=== PATIENT | female | born 1950 | race American Indian/Alaskan Native ===

== ENCOUNTER 2019-07-27 07:49 | Day surgery (SDC) | payer MEDICARE ==
--- NOTE | 2019-07-27 09:21 | Emergency Department Report ---
ED General Adult HPI - General Chief complaint: Medical Clearance Stated complaint: KIDNEY STONES Time Seen by Provider: 07/27/19 09:11 Source: patient Mode of arrival: Ambulatory Limitations: No Limitations - History of Present Illness Initial comments: This is a 68-year-old female who states that she was called by the lady (Rae) that schedules surgery for Dr. Mayfield. She was directed to "come to the emergency room yesterday". Patient states this was for scheduled kidney stone surgery. She is a very poor historian. She does not know if she is scheduled for an open procedure or endoscopic retrieval. She does not complain of fever chills nausea vomiting or any acute pain. She has had right flank pain since January when the kidney stone was discovered. She states that she has had a urine infection in the past but is not currently on an antibiotic. Patient states that she checked her sugar and found it to be 100 this morning. She states that she checks her sugar twice a day but does not take any medicine for diabetes. She has a history of hypertension. -: month(s) Location: right (Flank) Radiation: non-radiation Consistency: intermittent Improves with: none Worsens with: none Associated Symptoms: denies other symptoms Treatments Prior to Arrival: other ("Medicine to make the kidney stone come out") - Related Data Home Medications Medication Instructions Recorded Confirmed Last Taken AtorvaSTATin 40 mg PO DAILY 10/08/15 10/08/15 10/07/15 Fexofenadine HCl 180 mg PO DAILY 10/08/15 10/08/15 10/07/15 Finasteride 1 mg PO DAILY 10/08/15 10/08/15 10/07/15 Hydrochlorothiazide 25 mg PO DAILY 10/08/15 10/08/15 10/08/15 Omeprazole 40 mg PO DAILY 10/08/15 10/08/15 10/07/15 SUMAtriptan SUCCINATE 50 mg PO DAILY 10/08/15 10/08/15 10/07/15 Topiramate 25 mg PO DAILY 10/08/15 10/08/15 10/07/15 Allergies Allergy/AdvReac Type Severity Reaction Status Date / Time acetaminophen [From Percocet] Allergy Hives Verified 10/06/15 10:43 oxycodone HCl [From Percocet] Allergy Hives Verified 10/06/15 10:43 ED Review of Systems ROS: Stated complaint: KIDNEY STONES Other details as noted in HPI Constitutional: denies: chills, fever Eyes: denies: eye pain, vision change ENT: denies: ear pain, throat pain Respiratory: denies: cough, shortness of breath, wheezing Cardiovascular: denies: chest pain, palpitations Endocrine: no symptoms reported Gastrointestinal: denies: abdominal pain, nausea, diarrhea Genitourinary: denies: urgency, dysuria, discharge Musculoskeletal: back pain. denies: arthralgia Skin: denies: rash, lesions Neurological: denies: headache, weakness Psychiatric: denies: anxiety, depression Hematological/Lymphatic: denies: easy bleeding, easy bruising ED Past Medical Hx - Past Medical History Previous Medical History?: Yes Hx Hypertension: Yes (1999) Hx Diabetes: Yes (2018) Hx GERD: Yes Hx Renal Disease: No Hx Arthritis: Yes Hx Headaches / Migraines: Yes (MIGRAINES) Hx Seizures: No - Surgical History Past Surgical History?: Yes Hx Cholecystectomy: Yes Additional Surgical History: hysterectomy - Social History Smoking Status: Never Smoker Substance Use Type: None - Medications Home Medications: Home Medications Medication Instructions Recorded Confirmed Last Taken Type AtorvaSTATin 40 mg PO DAILY 10/08/15 10/08/15 10/07/15 History Fexofenadine HCl 180 mg PO DAILY 10/08/15 10/08/15 10/07/15 History Finasteride 1 mg PO DAILY 10/08/15 10/08/15 10/07/15 History Hydrochlorothiazide 25 mg PO DAILY 10/08/15 10/08/15 10/08/15 History Omeprazole 40 mg PO DAILY 10/08/15 10/08/15 10/07/15 History SUMAtriptan SUCCINATE 50 mg PO DAILY 10/08/15 10/08/15 10/07/15 History Topiramate 25 mg PO DAILY 10/08/15 10/08/15 10/07/15 History ED Physical Exam - General Limitations: Physical Limitation General appearance: alert, in no apparent distress, obese - Head Head exam: Present: atraumatic, normocephalic - Eye Eye exam: Present: normal appearance. Absent: scleral icterus - ENT ENT exam: Present: mucous membranes moist - Neck Neck exam: Present: normal inspection - Respiratory Respiratory exam: Present: normal lung sounds bilaterally. Absent: respiratory distress - Cardiovascular Cardiovascular Exam: Present: normal rhythm, tachycardia (Low 100s). Absent: systolic murmur, diastolic murmur, rubs, gallop - GI/Abdominal GI/Abdominal exam: Present: soft, normal bowel sounds. Absent: distended, tenderness, guarding, rebound, rigid - Extremities Exam Extremities exam: Present: normal inspection - Back Exam Back exam: Present: normal inspection. Absent: full ROM, tenderness, CVA tenderness (R), CVA tenderness (L), muscle spasm, paraspinal tenderness - Neurological Exam Neurological exam: Present: alert, oriented X3, CN II-XII intact. Absent: motor sensory deficit - Psychiatric Psychiatric exam: Present: normal affect, normal mood - Skin Skin exam: Present: warm, dry, intact, normal color. Absent: rash ED Course Vital Signs 07/27/19 07/27/19 08:30 08:31 Temperature 98.5 F 98.2 F Pulse Rate 105 H Respiratory 20 Rate Blood Pressure 153/79 O2 Sat by Pulse 99 Oximetry - Reevaluation(s) Reevaluation #1: Patient was seen and taken to outpatient surgery by Dr. Mayfield 07/27/19 12:36 ED Medical Decision Making - Lab Data Result diagrams: 07/27/19 09:30 07/27/19 09:30 Laboratory Results - last 24 hr 07/27/19 07/27/19 07/27/19 09:30 09:30 09:30 WBC 6.1 RBC 4.76 Hgb 12.0 Hct 37.3 MCV 79 MCH 25 L MCHC 32 RDW 15.3 H Plt Count 431 Lymph % (Auto) 17.0 Hitchcock % (Auto) 7.0 Eos % (Auto) 1.4 Baso % (Auto) 0.8 Lymph # 1.0 L Hitchcock # 0.4 Eos # 0.1 Baso # 0.1 Seg Neutrophils % 73.8 H Seg Neutrophils # 4.5 PT 15.2 H INR 1.23 H APTT 28.6 Sodium 140 Potassium 3.9 Chloride 99.6 Carbon Dioxide 24 Anion Gap 20 BUN 10 Creatinine 1.1 Estimated GFR > 60 BUN/Creatinine Ratio 9 Glucose 132 H Calcium 9.4 Total Bilirubin 0.30 Direct Bilirubin < 0.2 Indirect Bilirubin 0.1 AST 17 ALT 11 Alkaline Phosphatase 108 Total Protein 8.8 H Albumin 3.4 L Albumin/Globulin Ratio 0.6 Urine Color Urine Turbidity Urine pH Ur Specific [place] Urine Protein Urine Glucose (UA) Urine Ketones Urine Blood Urine Nitrite Urine Bilirubin Urine Urobilinogen Ur Leukocyte Esterase Urine WBC (Auto) Urine RBC (Auto) U Epithel Cells (Auto) Urine Bacteria (Auto) Urine Mucus Blood Type Antibody Screen 07/27/19 07/27/19 09:30 10:05 WBC RBC Hgb Hct MCV MCH MCHC RDW Plt Count Lymph % (Auto) Hitchcock % (Auto) Eos % (Auto) Baso % (Auto) Lymph # Hitchcock # Eos # Baso # Seg Neutrophils % Seg Neutrophils # PT INR APTT Sodium Potassium Chloride Carbon Dioxide Anion Gap BUN Creatinine Estimated GFR BUN/Creatinine Ratio Glucose Calcium Total Bilirubin Direct Bilirubin Indirect Bilirubin AST ALT Alkaline Phosphatase Total Protein Albumin Albumin/Globulin Ratio Urine Color Yellow Urine Turbidity Cloudy Urine pH 6.0 Ur Specific [place] 1.009 Urine Protein <15 mg/dl Urine Glucose (UA) Neg Urine Ketones Neg Urine Blood Mod Urine Nitrite Neg Urine Bilirubin Neg Urine Urobilinogen < 2.0 Ur Leukocyte Esterase Lg Urine WBC (Auto) 94.0 H Urine RBC (Auto) 8.0 U Epithel Cells (Auto) 4.0 Urine Bacteria (Auto) 2+ Urine Mucus Few Blood Type AB POSITIVE Antibody Screen Negative Critical care attestation.: If time is entered above; I have spent that time in minutes in the direct care of this critically ill patient, excluding procedure time. ED Disposition Clinical Impression: Right flank pain, Kidney stone on right side UTI (urinary tract infection) Qualifiers: Urinary tract infection type: site unspecified Hematuria presence: with hematuria Qualified Code(s): N39.0 - Urinary tract infection, site not specified; R31.9 - Hematuria, unspecified Disposition[facility] IP Is pt being admited?: No Does the pt Need Aspirin: No Condition: Stable Referrals: PRIMARY CARE, [Primary Care Provider] - 7 Days
[2019-07-27 09:43] LABS: Basophils # (Auto) 0.1 K/mm3 (0.0-0.1); Basophils % (Auto) 0.8 % (0.0-1.8); Eosinophils # (Auto) 0.1 K/mm3 (0.0-0.4); Eosinophils % (Auto) 1.4 % (0.0-4.3); Hematocrit 37.3 % (30.3-42.9); Mean Corpuscular HGB Conc 32 % (30-34); Mean Corpuscular Volume 79 fl (79-97); Monocytes # (Auto) 0.4 K/mm3 (0.0-0.8); Platelet Count 431 K/mm3 (140-440); Red Blood Count 4.76 M/mm3 (3.65-5.03); Red Cell Distribution Width 15.3 % (13.2-15.2)
[2019-07-27 09:55] LABS: INR 1.23 (0.87-1.13)
[2019-07-27 09:56] LABS: Partial Thromboplastin Time 28.6 Sec. (24.2-36.6)
[2019-07-27 10:05] LABS: Alanine Aminotransferase 11 units/L (7-56); Albumin 3.4 g/dL (3.9-5); BUN/Creatinine Ratio 9; Blood Urea Nitrogen 10 mg/dL (7-17); Calcium 9.4 mg/dL (8.4-10.2); Hemolysis Index 16
[2019-07-27] MEDS ORDERED: LIDOCAINE MPF (2%) 20 MG/1 ML VIAL 5 ML ONE (10:26)
[2019-07-27] MEDS ORDERED: dexAMETHasone 20 MG/5 ML VIAL ONE (10:26)
[2019-07-27] MEDS ORDERED: ONDANSETRON 4 MG/2 ML INJ ONE (10:26)
[2019-07-27] MEDS ORDERED: MIDAZOLAM 2 MG/2 ML INJ ONE (10:27)
[2019-07-27] MEDS ORDERED: fentaNYL 100 MCG/2 ML INJ ONE (10:27)
[2019-07-27] MEDS ORDERED: propofoL 200 MG/20 ML VIAL IV ONE (10:27)
[2019-07-27 10:33] LABS: Bacteria,Urine 2+ /HPF (Negative); Bilirubin,Urine NEG (Negative); Blood,Urine MOD (Negative); Color,Urine Yellow (Yellow); Mucus,Urine FEW /HPF; Protein,Urine <15 mg/dL mg/dL (Negative); Urobilinogen,Urine < 2.0 mg/dL (<2.0)
[2019-07-27 10:34] LABS: Bilirubin,Direct < 0.2 mg/dL (0-0.2)
[2019-07-27] MEDS ORDERED: ONDANSETRON 4 MG/2 ML INJ IV PRN ×2 (10:44→12:36)
[2019-07-27] MEDS ORDERED: fentaNYL 100 MCG/2 ML INJ IV PRN (10:44)
--- NOTE | 2019-07-27 10:44 | Anesthesia Consultation ---
Anesthesia Consult and Med Hx Date of service: 07/27/19 - Airway Anesthetic Teeth Evaluation: Dentures (upper and lower) ROM Head & Neck: Adequate Mental/Hyoid Distance: Adequate Mallampati Class: Class II Intubation Access Assessment: Probably Good - Pulmonary Exam CTA: Yes - Cardiac Exam Cardiac Exam: RRR - Pre-Operative Health Status ASA Pre-Surgery Classification: ASA3 Proposed Anesthetic Plan: General - Pulmonary Hx Smoking: Yes Hx Respiratory Symptoms: No Hx Sleep Apnea: No - Cardiovascular System Hx Hypertension: Yes Hx Heart Attack/AMI: No Hx Percutaneous Transluminal Coronary Angioplasty (PTCA): No Hx Cardia Arrhythmia: No - Central Nervous System CVA: No - Gastrointestinal Hx Gastroesophageal Reflux Disease: Yes (well controlled) - Endocrine Hx Renal Disease: No Hx Liver Disease: No Hx Non-Insulin Dependent Diabetes: Yes (diet controlled) Hx Thyroid Disease: No - Other Systems Hx Obesity: Yes (BMI 41) - Additional Comments Anesthesia Medical History Comments: No hx anesthetic complications
--- NOTE | 2019-07-27 10:44 | Anesthesia Day of Surgery ---
Anesthesia Day of Surgery - Day of Surgery Patient Examined: Yes Patient H&P Reviewed: Yes Patient is NPO: Yes
[2019-07-27] MEDS ORDERED: LACTATED RINGERS 1,000 ML IV SCH ×2 (11:00→13:00)
--- NOTE | 2019-07-27 11:14 | Short Stay Summary ---
Short Stay Documentation Date of service: 07/27/19 Narrative H&P: This is a 68-year-old female seen in office with worse rt flank pain CTAP 6mm distal stone & +DJD spine needs cysto . She does not complain of fever chills nausea vomiting or any acute pain. She has had right flank pain since January when the kidney stone was discovered. She states that she has had a urine infection in the past but is not currently on an antibiotic. - History Past Medical History: hypertension Past Surgical History: No surgical history Social history: no significant social history - Allergies and Medications Current Medications: Allergies acetaminophen [From Percocet] Allergy (Verified 10/06/15 10:43) Hives oxycodone HCl [From Percocet] Allergy (Verified 10/06/15 10:43) Hives Home Medications Medication Instructions Recorded Confirmed Last Taken Type AtorvaSTATin 40 mg PO DAILY 10/08/15 10/08/15 10/07/15 History Fexofenadine HCl 180 mg PO DAILY 10/08/15 10/08/15 10/07/15 History Finasteride 1 mg PO DAILY 10/08/15 10/08/15 10/07/15 History Hydrochlorothiazide 25 mg PO DAILY 10/08/15 10/08/15 10/08/15 History Omeprazole 40 mg PO DAILY 10/08/15 10/08/15 10/07/15 History SUMAtriptan SUCCINATE 50 mg PO DAILY 10/08/15 10/08/15 10/07/15 History Topiramate 25 mg PO DAILY 10/08/15 10/08/15 10/07/15 History Active Medications Fentanyl (Sublimaze) 50 mcg IV Q5MIN PRN PRN Reason: Pain , Severe (7-10) Stop: 07/27/19 23:00 Lactated Ringer's (Lactated Ringers) 1,000 mls @ 100 mls/hr IV DIRECT JUSTIN Ondansetron HCl (Zofran) 4 mg IV ONCE PRN PRN Reason: Nausea And Vomiting Stop: 07/27/19 23:00 - Physical exam General appearance: no acute distress, well-nourished Integumentary: no rash, no growths Lungs: Clear to auscultation Gastrointestinal: normal Extremities: no ischemia, No edema Neurological: Normal gait, Normal tone - Brief post op/procedure progress note Date of procedure: 07/27/19 Pre-op diagnosis: rt distal stone Post-op diagnosis: other (edema) Procedure: cysto, rpg, rt ureteroscopy, stone extraction stent with short internal string Anesthesia: DENISSE Surgeon: LEEANNE RAMOS Estimated blood loss: minimal Condition: stable - Hospital course Hospital course: va em, post op info on chart - Disposition Disposition: DC-01 TO HOME OR SELFCARE Short Stay Discharge Plan Follow up with: PRIMARY CARE, [Primary Care Provider] - 7 Days
[2019-07-27] MEDS ORDERED: LACTATED RINGERS 1,000 ML ONE (11:38)
[2019-07-27] MEDS ORDERED: WATER FOR IRRIG STERILE 2000 ML IR ONE (12:15)
[2019-07-27] MEDS ORDERED: ceFAZolin 1 GM VIAL ONE (12:24)
--- NOTE | 2019-07-27 12:39 | Operative Report ---
PREOPERATIVE DIAGNOSIS: Right distal stone. POSTOPERATIVE DIAGNOSIS: Right distal stone, impacted. PROCEDURE: Cystoscopy, bilateral retrograde pyelograms, right ureteroscopy, basket stone extraction, double-J stent with a short internal string (6-Lithuanian 24 cm). SURGEON: Rogers Mayfield MD ANESTHESIA: General. ESTIMATED BLOOD LOSS: Minimal. FLUIDS: Crystalloid. COMPLICATIONS: No complications. INDICATIONS: This 68-year-old female seen in the office with right flank pain, initially had a stone in the kidney on renal ultrasound. CT abdomen and pelvis revealed a 6 mm distal stone with hydronephrosis as well as degenerative changes in the lumbar spine. The patient was informed she has two causes of her pain. It became intractable, presenting now for intervention. DESCRIPTION OF PROCEDURE: The patient was taken to the operative suite, placed in a supine position. After adequate general anesthesia, she was placed in a dorsal lithotomy position, prepped and draped in a sterile fashion. Pancystourethroscopy was performed with a 22-Lithuanian Storz cystoscope, no urethral abnormalities. Bladder, no tumors or stones. Both ureteral orifices in normal position. Bilateral retrograde pyelograms were obtained with an 8-Lithuanian Osman catheter and 8 mL of contrast. No filling defects or obstruction on the left. Right side, obvious distal filling defect with dilatation. Two 0.035 Glidewires were placed. Rigid ureteroscopy was performed on the right side. Significant edema could be appreciated. The right distal ureter stone was engaged with a 3-Lithuanian Ruth basket and it broke up into fragments as it was extracted. There will be sent for routine pathologic evaluation. Ureteroscopy up to the renal pelvis, no other stones could be appreciated; however, still significant edema of the distal ureter, 6-Lithuanian 24 cm double-J stent with a short internal string. She was extubated and taken to recovery room. She will go home on [facility]. JOB# [id number] [facility]
[2019-07-27] MEDS ORDERED: HYDROcodone/ACETAMINOPHEN 5-325 MG TAB PO PRN (13:03)
[2019-07-27] MEDS: fentaNYL 100 MCG/2 ML INJ IV PRN ×2 (13:05→13:15)
--- NOTE | 2019-07-27 14:13 | Fluoroscopy Report ---
FLUOROSCOPIC GUIDANCE FOR RETROGRADE UROGRAPHY INDICATION / CLINICAL INFORMATION: RT KIDNEY STONE. COMPARISON: None available. FINDINGS: Fluoroscopic images were obtained during retrograde urography. No significant abnormality is identifi ed on the prestressed concrete laborer films. There is normal opacification of the left collecting system and ureter. A righ t internal ureteral stent is visualized and appears in expected location. Fluoroscopy time: 0.6 minutes. Fluoroscopy images: 7. Signer Name: Tina Castillo MD Signed: 07/27/2019 2:09 PM Workstation Name: [id number]
[2019-07-27 14:18] VITALS: BP 159/81
== END 2019-07-27 12:55 | disposition home or self-care (01) ==
LOC: ED 07:49 → OR 12:54
PROVIDERS: ATTEND Urology
DX: N20.0 Calculus of kidney (principal); G43.909 Migraine, unspecified, not intractable, without status migrainosus; E78.00 Pure hypercholesterolemia, unspecified; I10 Essential (primary) hypertension; K21.9 Gastro-esophageal reflux disease without esophagitis; E66.9 Obesity, unspecified; E11.9 Type 2 diabetes mellitus without complications; M06.9 Rheumatoid arthritis, unspecified; Z98.890 Other specified postprocedural states; Z79.899 Other long term (current) drug therapy; Z87.440 Personal history of urinary (tract) infections; Z90.49 Acquired absence of other specified parts of digestive tract; Z90.710 Acquired absence of both cervix and uterus; Z88.8 Allergy status to other drugs, medicaments and biological substances
CPT/HCPCS: 36415; 52332; 52352; 74420; 80048; 80076; 81001; 85025; 85610; 85730; 86850; 86900; 86901; 87076; 87086; 87186; A4217; C1758; C1769; C2617; J0690; J1100; J2250; J2405; J2704; J3010; J7120; Q9967